=== PATIENT | female | born 1985 | race Hispanic/Latino ===

== ENCOUNTER 2024-05-04 13:49 | Emergency (ER) | payer BC ==
[~2024-05-04] VITALS: Ht 149.9 cm; Wt 74.8 kg
[2024-05-04 13:59] VITALS: TEMP 98.7
[2024-05-04 14:32] LABS: BASOPHILS % 0.3 % (0.0-1.0); EOSINOPHILS % 0.4 % (0.0-6.0); HEMOGLOBIN 14.1 g/dL (12.0-16.0); LYMPHOCYTES # (AUTO) 2.4 (1.0-3.2); LYMPHOCYTES % 23.8 % (18.0-39.1); MEAN CORPUSCULAR HEMOGLOBIN 26.7 pg (28-32); MEAN CORPUSCULAR HGB CONC 32.8 g/dL (31-35); MEAN CORPUSCULAR VOLUME 81.4 fL (81-99); MONOCYTES # (AUTO) 0.5 (0.2-0.8); MONOCYTES % 4.7 % (4.4-11.3); NEUTROPHILS % 70.4 % (38.7-80.0); PLATELET COUNT 313 x10e3/uL (140-360); RED BLOOD COUNT 5.28 x10e6/uL (3.6-5.1); RED CELL DISTRIBUTION WIDTH 15.2 % (11.7-14.4); WHITE BLOOD COUNT 9.87 x10e3/uL (4.8-10.8)
[2024-05-04 14:37] LABS: PROTHROMBIN TIME 13.8 seconds (11.9-14.5)
[2024-05-04 14:38] LABS: PARTIAL THROMBOPLASTIN TIME 28.6 seconds (23.8-35.5)
[2024-05-04] MEDS: KETOROLAC TROMETHAMINE 30 MG/ML VIAL IV STA (14:45)
[2024-05-04 14:46] LABS: ALANINE AMINOTRANSFERASE 18 IU/L (0-55); ALBUMIN 4.3 g/dL (3.5-5.0); ALKALINE PHOSPHATASE 66 IU/L (40-150); ANION GAP 13.6 mmol/L (8-16); BLOOD UREA NITROGEN 8 mg/dL (7-26); BUN/CREATININE RATIO 11 (6-25); CALCIUM 9.9 mg/dL (8.4-10.2); CARBON DIOXIDE 23 mmol/L (22-29); CHLORIDE 106 mmol/L (98-107); CREATININE, SERUM 0.76 mg/dL (0.57-1.11); EST GLOMERULAR FILTRATION RATE 102 ML/MIN (>=60); GLUCOSE 81 mg/dL (74-118); POTASSIUM 3.6 mmol/L (3.5-5.1); SODIUM 139 mmol/L (136-145); TOTAL PROTEIN 8.5 g/dL (6.5-8.1)
[2024-05-04 14:50] VITALS: PULSE 60; RESP 12; O2SAT 99
[2024-05-04 14:54] LABS: TROPONIN I < 0.001 ng/mL (0-0.300)
== END 2024-05-04 15:34 | disposition home or self-care (01) ==
LOC: ER 13:57
DX: R07.89 Other chest pain (principal); L40.50 Arthropathic psoriasis, unspecified; E03.9 Hypothyroidism, unspecified; J45.909 Unspecified asthma, uncomplicated
CPT/HCPCS: 36415; 71045; 80053; 84484; 84702; 85025; 85610; 85730; 93005; 99284; J1885